=== PATIENT | male | born 1955 | race Caucasian/White ===

== ENCOUNTER → 2019-10-08 | Outpatient (REF) | payer OTHER ==
[2019-11-25 22:22] LABS: APPEARANCE, URINE CLEAR (CLEAR); BACTERIA, URINE AUTO NEGATIVE (NEGATIVE); BILIRUBIN, URINE AUTO NEGATIVE (NEGATIVE); BLOOD, URINE BLOOD NEGATIVE (NEGATIVE); CALCIUM OXALATE CRYSTALS SMALL; COLOR, URINE YELLOW (YELLOW); GLUCOSE, URINE (UA) AUTO NEGATIVE (NEGATIVE); KETONE, URINE AUTO NEGATIVE (NEGATIVE); LEUKOCYTE ESTERASE, URINE AUTO NEGATIVE (NEGATIVE); MUCUS, URINE SMALL (NEGATIVE); NITRITE, URINE AUTO NEGATIVE (NEGATIVE); PROTEIN, URINE AUTO NEGATIVE (NEGATIVE); RBC, URINE AUTO 1 /HPF (0-3); SPECIFIC GRAVITY URINE AUTO 1.018 (1.002-1.035); SQUAMOUS EPITHELIAL CELL UR AU 0 /HPF (0-6); UROBILINOGEN, URINE AUTO 0.2 mg/dL (0.0-2.0); WBC, URINE AUTO 2 /HPF (0-3)
== END ==
LOC: M SMT 10:31
PROVIDERS: ATTEND Nurse Practitioner Family
DX: N39.0 Urinary tract infection, site not specified (principal)

== ENCOUNTER → 2019-10-29 | Outpatient (CLI) | payer OTHER ==
--- NOTE | 2019-11-22 08:11 | REPPI ---
TRANSRECTAL PROSTATE ULTRASOUND WITH ULTRASOUND GUIDANCE FOR PROSTATE BIOPSY HISTORY: Elevated prostate-specific antigen. TECHNIQUE: Transrectal prostate ultrasound performed. FINDINGS: Prostate measures 5.1 x 3.5 x 5.3 cm for a total volume of 48.8 mL. Echotexture is heterogeneous with scattered small cysts and calcifications. No peripheral zone mass is seen. Seminal vesicles are symmetrical. Ultrasound guidance was provided for Dr. Rodrigues who performed ultrasound- guided biopsy of the prostate. [facility]
== END ==
LOC: M SMT PRO 09:13
PROVIDERS: ATTEND Urology
DX: R97.20 Elevated prostate specific antigen [PSA] (principal)
CPT/HCPCS: 76872; G0416

== ENCOUNTER → 2024-04-02 | Outpatient (REF) | payer MEDICARE, OTHER | LOC: M SMT 12:50 | PROVIDERS: ATTEND Urology | DX: R97.20 Elevated prostate specific antigen [PSA] (principal) ==